=== PATIENT | female | born 1990 | race Caucasian/White ===

== ENCOUNTER 2017-09-15 20:35 | Emergency (ER) | payer SELFPAY, MEDICAID ==
[2017-09-15] MEDS: FLUORESCEIN STRIP LEFT EYE (23:30)
[2017-09-15] MEDS: TETRACAINE 0.5% 4 ML OPH LEFT EYE (23:30)
[2017-09-16] MEDS: OPHTHALMIC IRRIG SOLUTION 120 ML LEFT EYE (00:38)
== END 2017-09-16 00:43 | disposition home or self-care (01) ==
LOC: FTE 20:35
DX: S05.02XA Injury of conjunctiva and corneal abrasion without foreign body, left eye, initial encounter (principal); W25.XXXA Contact with sharp glass, initial encounter; Y92.9 Unspecified place or not applicable
CPT/HCPCS: 99283

== ENCOUNTER 2017-09-27 05:21 | Emergency (ER) | payer SELFPAY | END 2017-09-27 07:33 | disposition home or self-care (01) | LOC: FTE 05:21 | DX: M26.603 Bilateral temporomandibular joint disorder, unspecified (principal); J06.9 Acute upper respiratory infection, unspecified | CPT/HCPCS: 99283 ==

== ENCOUNTER 2018-03-08 10:49 | Emergency (ER) | payer SELFPAY, OTHER ==
[2018-03-08] MEDS: MECLIZINE 12.5 MG TAB PO (11:37)
[2018-03-08] MEDS: ONDANSETRON (ODT) 4 MG TAB ODT (11:37)
== END 2018-03-08 12:17 | disposition home or self-care (01) ==
LOC: FTE 10:49
DX: R42 Dizziness and giddiness (principal)
CPT/HCPCS: 81025; 99283

== ENCOUNTER 2018-03-20 22:46 | Emergency (ER) | payer SELFPAY ==
[2018-03-20] MEDS: DIPHTH/TET/ACEL PERTUSS (ADULT) 0.5 ML VIAL IM* (23:44)
== END 2018-03-21 00:41 | disposition left against medical advice (07) ==
LOC: FTE 22:46
DX: S91.011A Laceration without foreign body, right ankle, initial encounter (principal); W26.0XXA Contact with knife, initial encounter; Y92.000 Kitchen of unspecified non-institutional (private) residence as the place of occurrence of the external cause; Z23 Encounter for immunization
CPT/HCPCS: 73610; 73610-RT; 90471; 90715; 99283-25

== ENCOUNTER 2018-07-05 21:20 | Emergency (ER) | payer SELFPAY | END 2018-07-05 22:45 | disposition left against medical advice (07) | LOC: FTE 21:20 | DX: Z53.21 Procedure and treatment not carried out due to patient leaving prior to being seen by health care provider (principal) ==

== ENCOUNTER 2019-02-12 23:45 | Emergency (ER) | payer SELFPAY | END 2019-02-13 01:00 | disposition home or self-care (01) | LOC: FTE 23:45 | DX: H66.91 Otitis media, unspecified, right ear (principal) | CPT/HCPCS: 99283 ==